=== PATIENT | male | born 1995 | race Caucasian/White ===

== ENCOUNTER 2022-07-20 17:02 | Emergency (ER) | payer OTHER ==
[~2022-07-20] VITALS: Ht 172.7 cm; Wt 81.6 kg
--- NOTE | 2022-07-20 23:30 | NUR ---
Pt. in bed, seen and examined by Dr. Saxena
[2022-07-21] MEDS ORDERED: OXYC-128 PO (00:14)
[2022-07-21] MEDS ORDERED: HYDR25SU33 RC (00:14)
--- NOTE | 2022-07-21 00:18 | NUR ---
Patient discharged to home in stable condition. Written and verbal after care instructions given. Patient verbalizes understanding of instructions. Stressed follow up or return to ER for worsening s/s.
[2022-07-21 00:21] VITALS: BP 130/70
== END 2022-07-21 00:18 | disposition home or self-care (01) ==
LOC: ER 17:02
DX: K64.4 Residual hemorrhoidal skin tags (principal); F17.210 Nicotine dependence, cigarettes, uncomplicated
CPT/HCPCS: A4663